=== PATIENT | female | born 1955 | race Caucasian/White ===

== ENCOUNTER 2021-04-01 17:15 | Observation (INO) | payer BC ==
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
[2021-04-01 19:16] LABS: Absolute Lymphocytes (CBC) 1.5 K/uL (0.7-4.9); Basophils % 0.6 % (0-1.3); Hematocrit 37.1 % (36.0-45.0); Lymphocytes % 24.2 % (15.3-44.8); MPV 9.1 fL (7.6-11.3); RBC Red Blood Cell Count 4.27 M/uL (3.86-4.86)
[2021-04-01 19:31] LABS: ALT/SGPT 36 U/L (12-78); AST/SGOT 25 U/L (15-37); Albumin 4.2 g/dL (3.4-5.0); Alkaline Phosphatase 71 U/L (45-117); BUN Blood Urea Nitrogen 16 mg/dL (7-18); Bicarbonate 28 mmol/L (21-32); Bilirubin Total 0.4 mg/dL (0.2-1.0); Glucose Level 98 mg/dL (74-106); Potassium 3.7 mmol/L (3.5-5.1); Protein, Total 7.7 g/dL (6.4-8.2); Sodium Level 144 mmol/L (136-145)
[2021-04-01 19:34] LABS: Protime INR 0.98
[2021-04-01] MEDS ORDERED: ACETAMINOPHEN 500 MG TAB ONE (20:20)
[2021-04-01] MEDS ORDERED: ONDANSETRON 4 MG/2 ML VIAL IV PRN (21:01)
[2021-04-01] MEDS: NA CHLORIDE 0.9% 1,000 ML IV SCH (21:01)
--- OUTSIDE RECORDS SUMMARY | 2021-04-01 22:50 | XMS REPORT | Continuity of Care Document ---
:1955 Author Organization [facility] t Address [address] [place] [address] Dr. [address] [place] [address] Care Team Providers Name Role Phone Lab, Fam Pob I Attending Clinician Unavailable Doctor Unassigned, Name Attending Clinician Unavailable Problems This patient has no known problems. Allergies, Adverse Reactions, Alerts This patient has no known allergies or adverse reactions. Medications This patient has no known medications. Procedures This patient has no known procedures. Encounters Start End Encounter Admission Attending Care Care Encounter Source Date/Time Date/Time Type Type Clinicians Facility Department ID 2021-03-02 2021-03-02 Telephone Lab, [facility] [id number] 00:00:00 00:00:00 Fam Pob I Health [id number] [place] [id number] Professio [phone] [address]al [address] 2021-02-27 2021-02-27 Laboratory Lab, [facility] [id number] 11:25:28 11:45:28 Only Fam Pob I Health [id number] [place] [id number] Professio [phone] nal [address] 2021-02-27 2021-02-27 Letter Doctor SAEED [id number] 00:00:00 00:00:00 (Out) Unassigned, [place] [id number] [place] [phone] [id number] 2021-02-27 2021-02-27 Letter Doctor DARLIN [id number] 00:00:00 00:00:00 (Out) Unassigned, [place] [id number] [place] [facility] [id number] Results This patient has no known results.
[2021-04-01 22:59] VITALS: BMI 22.8
[2021-04-02 02:54] LABS: Basophils % 0.7 % (0-1.3); Hematocrit 33.9 % (36.0-45.0); Lymphocytes % 35.8 % (15.3-44.8); MPV 8.9 fL (7.6-11.3); RBC Red Blood Cell Count 3.91 M/uL (3.86-4.86)
[2021-04-02 03:06] LABS: BUN Blood Urea Nitrogen 15 mg/dL (7-18); Bicarbonate 28 mmol/L (21-32); Glucose Level 91 mg/dL (74-106); Potassium 3.8 mmol/L (3.5-5.1); Sodium Level 145 mmol/L (136-145)
[2021-04-02] MEDS: NA CHLORIDE 0.9% 1,000 ML IV SCH (07:01)
[2021-04-02] MEDS ORDERED: NA CHLORIDE 0.9% 1,000 ML ONE ×2 (07:21→07:51)
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
--- NOTE | 2021-04-02 07:37 | EKG ---
Test Date: 2021-04-01 Test Time: 19:18:20 Metal Filer: MELLISSA MEASUREMENT RESULTS: Intervals: Rate: 73 IA: 132 QRSD: 84 QT: 408 QTc: 449 [place]: P: 68 IA: 132 QRS: 29 T: 37 INTERPRETIVE STATEMENTS: Normal sinus rhythm Normal ECG No previous ECG available for comparison Electronically Signed On 04-02-21 07:36:18 CDT by Carlyle Osborne
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
[2021-04-02] MEDS ORDERED: PNEUMOCOCCAL VACCINE 0.5 ML IMVAC ONE (10:00)
[2021-04-02 10:50] VITALS: O2SAT 98
[2021-04-02 13:53] VITALS: TEMP 98.5
[2021-04-02 14:20] VITALS: BP 133/72
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
== END 2021-04-02 14:24 | disposition home or self-care (01) ==
LOC: ER 17:15 → ERHOLD 18:49
PROVIDERS: ADMIT Surgery; ATTEND Surgery
DX: S06.9X9A Unspecified intracranial injury with loss of consciousness of unspecified duration, initial encounter (principal); F07.81 Postconcussional syndrome; R41.2 Retrograde amnesia; M25.512 Pain in left shoulder; V43.52XA Car driver injured in collision with other type car in traffic accident, initial encounter; Y92.410 Unspecified street and highway as the place of occurrence of the external cause
CPT/HCPCS: 93005; 85025 ×2; 80048; 36415; 85610; 85730; 80053; 70450 ×2; 72125; 71260; 74177; 73030; 99285; Q9967; J7030 ×2; G0378 ×3; G0390

== ENCOUNTER 2022-10-30 06:12 | Day surgery (SDC) | payer MEDICARE ==
[2022-10-30] MEDS ORDERED: PHENYLEPHRINE 10% OPTH 5ML ONE (06:42)
[2022-10-30] MEDS ORDERED: MOXIFLOXACIN HCL 10 DROPS/ML **OR USE OPTH ONE (06:42)
[2022-10-30] MEDS ORDERED: CYCLOPENTOLATE 2% OPTH 2 ML ONE (06:43)
[2022-10-30] MEDS ORDERED: KETOROLAC OPTHALMIC 5 ML BOT ONE (06:43)
[2022-10-30] MEDS ORDERED: Ringers Lactate 1,000 ML IV ONE (06:43)
[2022-10-30] MEDS ORDERED: TROPICAMIDE 1% OPTH 3 ML BOT ONE (06:44)
[2022-10-30] MEDS ORDERED: TOBRADEX 0.3-0.1% OPTH OINTMENT ONE (07:01)
[2022-10-30] MEDS ORDERED: BSS OPTHALMIC SOL 15 ML OPTH ONE (07:01)
[2022-10-30] MEDS ORDERED: EPINEPHRINE/PF 1 MG/ML AMP ONE (07:02)
[2022-10-30] MEDS ORDERED: POVIDONE-IODINE 5% EYE DROPS ONE (07:02)
[2022-10-30] MEDS ORDERED: BALANCED SALT IRRIG PLAIN 500 ML IRR ONE (07:02)
[2022-10-30] MEDS ORDERED: FENTANYL CITR 100 MCG/2 ML ONE (07:03)
[2022-10-30] MEDS ORDERED: propofoL 200 MG/20 ML VIAL IV ONE (07:03)
[2022-10-30] MEDS ORDERED: LIDOCAINE 2% MPF 5 ML VIAL ONE (07:03)
[2022-10-30] MEDS ORDERED: ONDANSETRON 4 MG/2 ML VIAL ONE (07:03)
[2022-10-30] MEDS ORDERED: MIDAZOLAM HCL 2 MG/2 ML INJ ONE (07:03)
[2022-10-30] MEDS ORDERED: DUOVISC 1 KIT OPTH ONE (07:03)
[2022-10-30] MEDS ORDERED: EPHEDRINE SULF 50 MG/ML VIAL ONE (07:53)
--- NOTE | 2022-10-30 09:52 | OP ---
Date of Procedure: 10/30/2022 Surgeon: Pravin Villarreal MD Preoperative Diagnosis: Visually significant cataract, right eye. Postoperative Diagnosis: Visually significant cataract, right eye. Procedure Performed: Cataract extraction right eye with placement of intraocular lens. Description Of Procedure: After being properly identified in the preoperative holding, the patient w as taken back to the operating room where a time-out was performed. Patient was then prepped and nivia ped in the normal sterile fashion after being placed under general anesthesia. Examination of the ey e underneath the operating microscope revealed a well dilated pupil with visualization of zonular ten norman almost 360 degrees. 1 mm side-port blade was made to make paracentesis wounds in the nasal and temporal quadrants and the anterior chamber filled with viscoelastic. The globe was again grasped wi th a pair of 0.12 forceps and a main phaco incision wound made superiorly in a triplane fashion using a 2.4 mm keratome. A continuous curvilinear capsulorrhexis was created using a cystotome and comple efren with Utrata forceps. Towards the end this did start to run out, but was able to be recovered usi ng the little technique and a complete curvilinear capsulorrhexis without interruption was created. Hydrodissection and hydrodelineation were carried out using a Correa cannula resulting in free rotatio n of the lens nucleus and thereafter the cataract was divided in a standard divide and conquer techni que. Total continuous dispersed energy was 15.99. After all 4 quadrants have been removed, the phac o handpiece was exchanged for bimanual irrigation, aspiration handpieces, and all cortical material w as removed. The capsular bag was filled with additional viscoelastic and a Carlos and Carlos model DCB00 IOL power 23.0 diopter, serial #[id number] was injected into the capsular bag. During the ins ertion of the IOL, the leading haptic did cause a retinal hole to form in the posterior capsule. How ever, the lens was safely delivered and able to be dialed into position into the capsular bag without extension of the hole and no vitreous was present. The limb secured nicely and thereafter a single 10-0 suture was applied through the main phaco incision wound and the viscoelastic removed using bima nual irrigation aspiration handpieces cautiously. All wounds were tested and found to be watertight again with the lens centered extremely well with good security and the procedure concluded with the p atient tolerating the procedure well, having been under general anesthesia the entire time. Only com plication is as noted above. There were no specimens sent or drains placed. The patient is to follo w up with myself, Dr. Pravin Villarreal, tomorrow morning. RICHYG/MODL Voice ID: [id number] Report ID: [id number]
[2022-10-30 10:38] VITALS: BP 111/46; TEMP 97.3; O2SAT 99
== END 2022-10-30 10:15 | disposition home or self-care (01) ==
LOC: OR 06:12
PROVIDERS: ATTEND Ophthalmology
PROC: 08RJ3JZ Replacement of Right Lens with Synthetic Substitute, Percutaneous Approach (ICD-10-PCS; principal; 2022-10-30 07:30)
DX: H25.13 Age-related nuclear cataract, bilateral (principal)
CPT/HCPCS: 66984; J2704; J0171; J1885; J2001; J2250; J3010; J2405; J7120

== ENCOUNTER → 2022-12-04 | Day surgery (SDC) | payer MEDICARE ==
[~2022-12-04] MED LIST: ACETAMINOPHEN 325 MG TABLET ONE; BALANCED SALT IRRIG PLAIN 500 ML IRR ONE; BSS OPTHALMIC SOL 15 ML OPTH ONE; DUOVISC 1 KIT OPTH ONE; EPINEPHRINE/PF 1 MG/ML AMP ONE; FENTANYL CITR 100 MCG/2 ML ONE; LIDOCAINE 2% MPF 5 ML VIAL ONE; ONDANSETRON 4 MG/2 ML VIAL ONE; POVIDONE-IODINE 5% EYE DROPS ONE; Ringers Lactate 1,000 ML IV ONE; TOBRADEX 0.3-0.1% OPTH OINTMENT ONE; propofoL 200 MG/20 ML VIAL IV ONE
[2022-12-04] MEDS: KETOROLAC OPTHALMIC 5 ML BOT ONE ×2 (06:39→06:55)
[2022-12-04] MEDS: TROPICAMIDE 1% OPTH 3 ML BOT ONE ×2 (06:39→06:55)
[2022-12-04] MEDS: CYCLOPENTOLATE 2% OPTH 2 ML ONE ×2 (06:39→06:55)
[2022-12-04] MEDS: PHENYLEPHRINE 10% OPTH 5ML ONE ×2 (06:39→06:55)
[2022-12-04] MEDS: MOXIFLOXACIN HCL 10 DROPS/ML **OR USE OPTH ONE ×2 (06:39→06:55)
[2022-12-04 08:28] VITALS: O2SAT 100
--- NOTE | 2022-12-04 09:58 | OP ---
Date of Procedure: 12/04/2022 Surgeon: Pravin Villarreal MD Plastic Injection Mold Maker: None. Preoperative Diagnosis: Visually significant cataract, left eye. Postoperative Diagnosis: Visually significant cataract, left eye. Procedure Performed: Cataract extraction, left eye with placement of intraocular lens. Description Of Procedure: After being properly identified in the preoperative holding area, the richmond ent was taken back to the operating room where a time-out was performed. The patient was then placed under general anesthesia and prepped and draped in normal sterile fashion. Examination of the eye u nderneath the operating microscope revealed a very well dilated pupil with a good red reflex. The gl obe was grasped with a pair of 0.12 forceps and paracentesis wounds were made superiorly and inferior ly and the anterior chamber filled with Viscoat. The main phaco incision wound was made temporally i n a triplanar fashion using a 2.4 mm keratome and a continuous curvilinear capsulorrhexis was created using a cystotome and completed with the Utrata forceps. Hydrodissection and hydrodelineation of th e lens were carried out using a Correa cannula resulting in free rotation of the lens nucleus, and the nucleus was thereafter removed in a standard divide and conquer technique. Once all 4 quadrants had been removed, the phaco handpiece was exchanged for bimanual irrigation aspiration handpieces in [facility] the cortical material was removed in its entirety and the capsular bag polished. Provisc was then added into the capsular bag and a Carlos and Carlos pre-loaded model DCB00, power 20.5 diopter, se rial #[id number] was injected into the capsular bag and dialed into position. A coaxial I and A hand piece was thereafter used to remove the remaining viscoelastic and the wounds were hydrated in order to ensure water tightness, which was tested using a Weck-Zeynep. Once all wounds were confirmed to be w atertight and the lens confirmed to be in good central position, the procedure concluded, and the lid speculum and drapes were removed. The patient was awoken from general anesthesia and transported to the postoperative holding area in stable condition. There were no complications. Estimated blood l oss was nil. There were no specimens sent or drains placed. Implants are as above. The patient is to follow up with myself, Dr. Pravin Villarreal tomorrow morning. JPG/MODL Voice ID: [id number] Report ID: [id number]
[2022-12-04 11:42] VITALS: BP 133/55; TEMP 97
== END ==
LOC: OR 06:15
PROVIDERS: ATTEND Ophthalmology
PROC: 08RK3JZ Replacement of Left Lens with Synthetic Substitute, Percutaneous Approach (ICD-10-PCS; principal; 2022-12-04 07:30)
DX: H25.12 Age-related nuclear cataract, left eye (principal)
CPT/HCPCS: 66984; J2704; J0171; J1885; J2001; J3010; J2405; J7120